=== PATIENT | female | born 2000 | race Two or more races ===

== ENCOUNTER 2025-03-20 19:25 | Emergency (ER) | payer MEDICAID, SELFPAY ==
[2025-03-20 19:25] VITALS: BMI 60.0
[2025-03-20 20:34] VITALS: BP 138/84; PULSE 97; TEMP 37.1; O2SAT 97
--- NOTE | 2025-03-20 20:43 | PD.EDRME ---
Rapid Medical Screening Exam [facility] Arrival date/time: 03/20/25 19:25 25F with history of morbid obesity presents to ED with weeks of N/V and non-bloody diarrhea, as well as 4 days of cough, fevers/chills, and epigastric pain. Chief Complaint: Fever Vital signs: Vital Signs Temperature 98.7 F 03/20/25 20:34 Pulse Rate 97 03/20/25 20:34 Blood Pressure 138/84 H 03/20/25 20:34 Pulse Oximetry (%) 97 03/20/25 20:34 Oxygen Delivery Method Room Air 03/20/25 20:34
[2025-03-20 21:12] LABS: Basophils # (Auto) 0.0 Thou/mm3 (0.0-0.2); Basophils % (Auto) 1 % (0-2.5); Eosinophils # (Auto) 0.0 Thou/mm3 (0.0-0.5); Eosinophils % (Auto) 0 % (0-10); Hematocrit 40.9 % (36.0-46.0); Hemoglobin 13.7 g/dL (12.0-16.0); Immature Granulocytes Auto 0.01 Thou/mm3 (0.00-0.00); Lymphocytes # (Auto) 1.0 Thou/mm3 (1.0-4.8); Lymphocytes % (Auto) 14 % (10-50); Mean Corpuscular HGB Conc 33.5 g/dl (31.0-37.0); Mean Corpuscular Hemoglobin 29.2 pg (25.0-35.0); Mean Corpuscular Volume 87 fL (80-100); Monocytes # (Auto) 0.6 Thou/mm3 (0.0-0.8); Monocytes % (Auto) 10 % (0-12); Neutrophils # (Auto) 5.1 Thou/mm3 (1.8-7.7); Neutrophils % (Auto) 75 % (37-80); Nucleated Red Blood Cell # 0.00 Thou/mm3 (0.00-0.00); Nucleated Red Blood Cell % 0 /100 WBC (0); Platelet Count 307 Thou/mm3 (140-440); RDW Standard Deviation 41.4 fL (36.4-46.3); Red Blood Count 4.69 Miln/mm3 (4.00-5.20); White Blood Count 6.8 Thou/mm3 (3.6-11.0)
--- NOTE | 2025-03-20 21:32 | PD.EDURI ---
Upper Respiratory Inf. RME/HPI General Chief Complaint: Fever Stated Complaint: FEVER X4 DAY, ABDOMINAL PAIN Time Seen by Provider: 03/20/25 21:27 Arrival date/time: 03/20/25 19:25 RME / HPI RME / HPI Narrative: 03/20/25 19:25 25F with history of morbid obesity presents to ED with weeks of N/V and non-bloody diarrhea, as well as 4 days of cough, fevers/chills, and epigastric pain. DR. ESPINOSA MAIN ED EVALUATION: 25 y/o female with no significant medical history presents to ED c/o cough, congestion and phlegm production x 4 days. In addition, patient also presents with diarrhea x 2 weeks. No other concerns or complaints expressed at this time. Related Data Previous Rx's ?Medication ?Instructions ?Recorded Hydrocodone/Acetaminophen * (NORCO 1 tab PO Q4H PRN ABDOMINAL PAIN 06/04/17 5/325 *) #30 tabs ondansetron HCl 4 mg tablet 4 mg PO Q6H PRN nausea and 03/20/25 vomiting #20 tabs Allergies Allergy/AdvReac Type Severity Reaction Status Date / Time NKA* Allergy Uncoded 06/04/17 05:19 Review of Systems Review of Systems Systems Reviewed: All systems reviewed, normal except as documented ED Exam Narrative Physical exam: Generally patient is alert and in no obvious distress, heart regular rate and rhythm, lungs clear to auscultation equal bilaterally, abdomen is obese soft bowel sounds present send nontender, skin is warm pale and dry without rash, neurologic exam no focal motor deficits Course Quality Measures none Orders Category Date Time Status Bedside COVID-19 Antigen Test NOW Care 03/20/25 20:43 Active Bedside Influenza A&B Antigen Test NOW Care 03/20/25 20:43 Completed CBC Stat Lab 03/20/25 21:01 Completed CMP [Comprehensive Metabolic Panel] Stat Lab 03/20/25 21:01 Received Lipase Stat Lab 03/20/25 21:01 Received Vital Signs Vital signs: Vital Signs Temperature 98.7 F 03/20/25 20:34 Pulse Rate 97 03/20/25 20:34 Blood Pressure 138/84 H 03/20/25 20:34 Pulse Oximetry (%) 97 03/20/25 20:34 Oxygen Delivery Method Room Air 03/20/25 20:34 Upper Respiratory Infection MDM Narrative MDM Narrative:: Scribe Attestation: Danyell Matias, am scribing for and in the presence of Dr. Espinosa. Provider Notation: Although this document has been carefully reviewed, there may still be some phonetic and other typographical errors. These errors are purely grammatical due to imperfections in the software program and should not be construed in any way to? compromise the substance of the patient's medical care during this visit. Differential diagnosis: Viral syndrome, gastroenteritis, COVID, flu Bedside COVID was positive. Patient is in stable condition. O2 saturation is 98% on room air. Patient has no past medical history. She does not qualify for Paxlovid. She is to take Tylenol and ibuprofen as prescribed. Zofran for nausea. Patient data External records reviewed:: [facility] previous records (Reviewed prior ED records from 05/17/24. Patient was seen for Abdominal pain.) Clinical information provided by:: patient Social determinants that could affect healthcare access:: none Patient has the following chronic illnesses:: None reported How is presenting disease/condition affected by chronic disease/condition?: no chronic disease Evaluation data The following diagnostics were reviewed and interpreted by me:: other (specify) (Covid/Flu) Lab and/or radiology exams considered but not ordered:: None Interpretation Summary: See MDM above. Medications / Prescriptions Medications or Prescriptions considered but not ordered:: None Medication administrations:: See above if any. Consultations Consultation(s) initiated? (list below): No Diagnosis Upper Respiratory Differential Diagnosis: upper respiratory infection, sinusitis, viral infection, bronchitis, influenza and pharyngitis Most likely diagnosis given after review of the tests above:: COVID-19 Admission Indicated Admission indicated?: not indicated Explain why admission is indicated or not indicated:: Patient does not meet admission criteria. Admission Request Was there a request for admission?: No Disposition Plan Disposition Plan: Discharge Discharge Attestation Discharge Attestation: The patient and all family members were given an opportunity to ask questions and understood the discharge instructions. Discharge instructions specifically effects, indications for sooner follow up or return to the emergency department, and the expected course of current diagnosis. Patient condition: Stable Discharge Plan Plan Patient Disposition: HOME (Self Care) Prescriptions/Referrals Prescriptions/Med Rec: New ondansetron HCl 4 mg tablet 4 mg PO Q6H PRN (Reason: nausea and vomiting) Qty: 20 0RF No Action Hydrocodone/Acetaminophen * (NORCO 5/325 *) 1 TAB tablet 1 tab PO Q4H PRN (Reason: ABDOMINAL PAIN) Qty: 30 0RF Referrals: No Primary/Family,Physician [Primary Care Provider] - In 1 week Problem List Clinical Impression: COVID-19 Patient/Caregiver Discharge Instructions Education Materials: COVID-19 Home Care Additional Instructions: Use Tylenol and/or ibuprofen as needed for fever and bodyaches. Zofran for nausea. Print Language: [place] Stand Alone Forms: Katherine Award Info., Patient Portal Info Letter
[2025-03-20 21:56] VITALS: PULSE 85; RESP 14; TEMP 37; O2SAT 99
[2025-03-20 22:01] LABS: Alanine Aminotransferase 41 U/L (10-49); Albumin, Serum 4.3 gm/dL (3.5-5.0); Albumin/Globulin Ratio 1.3 (1.2-2.2); Alkaline Phosphatase 102 U/L (46-116); Anion Gap 8 (7-16); Aspartate Amino Transferase 30 U/L (0-34); BUN/Creatinine Ratio 6 Ratio (12-20); Bilirubin,Total 0.3 mg/dL (0.3-1.2); Blood Urea Nitrogen < 5 mg/dL (9-23); Calcium 9.1 mg/dL (8.3-10.6); Calcium (Corrected) 9.1 mg/dL (8.5-10.1); Carbon Dioxide 26.7 mMol/L (20.0-31.0); Chloride 104 mMol/L (98-107); Creatinine (Component) 0.8 mg/dL (0.6-1.3); Estimated Creatinine Clearance 166.3 mL/min (>60); Globulin 3.4 gm/dL (2.3-3.5); Glucose 89 mg/dL (74-106); Lipase 29 U/L (12-53); Osmolality,Calculated 273 (275-295); Potassium 4.2 mMol/L (3.4-5.1); Sodium 139 mMol/L (136-145); Total Protein 7.7 gm/dL (5.7-8.2); eGFR > 60 See Note
== END 2025-03-20 21:56 | disposition home or self-care (01) ==
PROVIDERS: Physician Assistant; Emergency Provider Emergency Medicine
DX: U07.1 COVID-19 (principal)
CPT/HCPCS: 36415; 80053; 80307; 81001; 81025; 83690; 85025; 87400; 87811; 99283